=== PATIENT | male | born 1965 | race American Indian/Alaskan Native ===

== ENCOUNTER 2017-07-09 00:11 | Emergency (ER) | payer SELFPAY ==
[2017-07-09 03:39] LABS: Basophils # (Auto) 0.1 K/mm3 (0.0-0.1); Basophils % (Auto) 0.8 % (0.0-1.8); Eosinophils # (Auto) 0.2 K/mm3 (0.0-0.4); Eosinophils % (Auto) 1.5 % (0.0-4.3); Hematocrit 46.1 % (35.5-45.6); Hemoglobin 15.1 gm/dl (11.8-15.2); Lymphocytes # (Auto) 2.9 K/mm3 (1.2-5.4); Lymphocytes % (Auto) 23.5 % (13.4-35.0); Mean Corpuscular HGB Conc 33 % (32-34); Mean Corpuscular Volume 76 fl (84-94); Monocytes # (Auto) 1.2 K/mm3 (0.0-0.8); Monocytes % (Auto) 9.5 % (0.0-7.3); Platelet Count 221 K/mm3 (140-440); Red Blood Count 6.03 M/mm3 (3.65-5.03); Red Cell Distribution Width 15.1 % (13.2-15.2)
[2017-07-09 03:41] LABS: Mean Corpuscular Hemoglobin 25 pg (28-32)
[2017-07-09 03:56] LABS: Alanine Aminotransferase 17 units/L (7-56); Albumin 3.9 g/dL (3.9-5); BUN/Creatinine Ratio 14; Blood Urea Nitrogen 20 mg/dL (9-20); Calcium 8.6 mg/dL (8.4-10.2); Hemolysis Index 33
[2017-07-09] MEDS ORDERED: ZOFRAN IV ONE (04:59)
[2017-07-09] MEDS ORDERED: NACL 0.9% 1000 ML 1,000 ML IV ONE (04:59)
[2017-07-09] MEDS ORDERED: BENTYL PO ONE (04:59)
--- NOTE | 2017-07-09 05:00 | Emergency Department Report ---
ED General Adult HPI - General Chief complaint: Abdominal Pain Stated complaint: POSS CVA Time Seen by Provider: 07/09/17 04:17 Source: patient, EMS (ems notes not available at time of chart dictation), RN notes reviewed Mode of arrival: Stretcher Limitations: No Limitations - History of Present Illness Initial comments: this is a 52-year-old male who was previously unknown to this provider. He has a past medical history of stroke with mild residual right-sided deficits. He is brought to the hospital by EMS for possible convulsive event. Patient reports that he's been drinking over the past few days, but did not fall or hit his head. Apparently the patient may have had a convulsive event within the past 24 hours, the family was concerned that the patient might be having a stroke and contacted 911. The patient denies headache and neck pain as well as chest pain. He describes abdominal cramping and profuse nausea and vomiting. He denies testicular pain, urinary symptoms. The abdominal pain is crampy and does not radiate anywhere. Patient does not think that he's passed out. The patient reports that he feels like he is at his baseline currently. The patient would like some pain medicine, and also some fluids and some nausea medicine. -: Sudden Location: abdomen Severity scale (0 -10): 8 Consistency: intermittent Improves with: none Worsens with: none Associated Symptoms: malaise, nausea/vomiting, seizure. denies: confusion, chest pain, cough, diaphoresis, fever/chills, headaches, loss of appetite, rash , shortness of breath, syncope, weakness - Related Data Previous Rx's Medication Instructions Recorded Last Taken Type Acetaminophen [Tylenol Arthritis] 650 mg PO Q6HR PRN #30 tablet.er 07/09/17 Unknown Rx Ondansetron [Zofran Odt] 4 mg PO Q8HR PRN #20 tab.rapdis 07/09/17 Unknown Rx Allergies Allergy/AdvReac Type Severity Reaction Status Date / Time No Known Allergies Allergy Verified 07/09/17 05:06 ED Review of Systems ROS: Stated complaint: POSS CVA Other details as noted in HPI Constitutional: denies: fever Eyes: denies: eye discharge, vision change ENT: denies: epistaxis Respiratory: denies: cough Cardiovascular: denies: chest pain Gastrointestinal: abdominal pain, nausea, vomiting Genitourinary: denies: dysuria Musculoskeletal: denies: back pain Skin: denies: lesions Neurological: denies: weakness, numbness, paresthesias, confusion ED Past Medical Hx - Past Medical History Previous Medical History?: Yes Hx Hypertension: Yes Hx CVA: Yes (right deficits) Hx GERD: Yes - Surgical History Past Surgical History?: Yes Additional Surgical History: knee surgery - Social History Smoking Status: Current Every Day Smoker Substance Use Type: None, Alcohol - Medications Home Medications: Home Medications Medication Instructions Recorded Confirmed Last Taken Type Acetaminophen [Tylenol Arthritis] 650 mg PO Q6HR PRN #30 tablet.er 07/09/17 Unknown Rx Ondansetron [Zofran Odt] 4 mg PO Q8HR PRN #20 tab.rapdis 07/09/17 Unknown Rx ED Physical Exam - General Limitations: No Limitations General appearance: alert, in no apparent distress - Head Head exam: Present: atraumatic, normocephalic - Eye Eye exam: Present: normal appearance, EOMI, other (visual acuity intact to finger counting, color perception, reading at a close distance). Absent: nystagmus - ENT ENT exam: Present: normal exam, normal orophraynx, mucous membranes moist - Neck Neck exam: Present: normal inspection, full ROM - Respiratory Respiratory exam: Present: normal lung sounds bilaterally. Absent: respiratory distress - Cardiovascular Cardiovascular Exam: Present: regular rate, normal rhythm, normal heart sounds. Absent: systolic murmur, diastolic murmur, rubs, gallop - GI/Abdominal GI/Abdominal exam: Present: soft, normal bowel sounds. Absent: distended, tenderness, guarding, rebound, rigid, pulsatile mass - Rectal Rectal exam: Present: deferred - Extremities Exam Extremities exam: Present: normal inspection, full ROM, normal capillary refill. Absent: pedal edema, joint swelling, calf tenderness - Back Exam Back exam: Present: normal inspection, full ROM. Absent: tenderness, CVA tenderness (R), paraspinal tenderness - Neurological Exam Neurological exam: Present: alert, oriented X3, CN II-XII intact, normal gait, motor sensory deficit (there is 4.5-5 strength right upper extremity, right lower extremity.), other (sensation intact to light touch in the upper and lower extremities. Walks with a steady gait.) - Psychiatric Psychiatric exam: Present: normal affect, normal mood - Skin Skin exam: Present: warm, dry, intact, normal color. Absent: rash ED Course Vital Signs 07/09/17 07/09/17 07/09/17 01:17 02:54 03:00 Temperature 98 F Pulse Rate 72 78 Respiratory 20 Rate Blood Pressure 122/92 Blood Pressure 127/62 133/86 [Left] O2 Sat by Pulse 95 93 Oximetry 07/09/17 07/09/17 03:02 04:00 Temperature 97.8 F Pulse Rate 78 Respiratory 18 Rate Blood Pressure 97/67 Blood Pressure 125/94 [Left] O2 Sat by Pulse 96 95 Oximetry - Reevaluation(s) Reevaluation #1: 07/09/17 05:41 Differential diagnosis, including but not limited to: Dehydration, orthostasis, alcohol abuse, nonspecific convulsive event, urinary tract infection, pneumonia , intra-abdominal infection Assessment and plan: 52-year-old male with history of stroke with residual right -sided deficits, history of resolved hypotension within the past 24 hours, recent alcohol consumption and nausea and vomiting. He is currently afebrile with reassuring vital signs, clinically sober, walks with a steady gait, does not have any abdominal tenderness, and reports feeling like he is at his baseline. Laboratory studies unremarkable, EKG unremarkable. No convulsions or seizures noted while in the ER. CT scan of the head is pending, x-ray of the chest is negative, CT scan of the abdomen and pelvis is negative. - Consultations Consultation #1: 07/09/17 05:42 Care will be transferred to the oncoming ER physician, Dr. Tye Mckeon, to follow-up on the patient's CT scan results. Assuming CT scan is negative, patient able to tolerate oral feeds, and has no additional convulsive events, I would consider the patient suitable for discharge with instructions to follow up with an outpatient neurologist. ED Medical Decision Making - Lab Data Result diagrams: 07/09/17 03:08 07/09/17 03:08 Vital Signs 07/09/17 07/09/17 07/09/17 01:17 02:54 03:00 Temperature 98 F Pulse Rate 72 78 Respiratory 20 Rate Blood Pressure 122/92 Blood Pressure 127/62 133/86 [Left] O2 Sat by Pulse 95 93 Oximetry 07/09/17 07/09/17 03:02 04:00 Temperature 97.8 F Pulse Rate 78 Respiratory 18 Rate Blood Pressure 97/67 Blood Pressure 125/94 [Left] O2 Sat by Pulse 96 95 Oximetry Lab Results 07/09/17 07/09/17 07/09/17 Range/Units 03:08 03:08 05:13 WBC 12.3 H (4.5-11.0) K/mm3 RBC 6.03 H (3.65-5.03) M/mm3 Hgb 15.1 (11.8-15.2) gm/dl Hct 46.1 H (35.5-45.6) % MCV 76 L (84-94) fl MCH 25 L (28-32) pg MCHC 33 (32-34) % RDW 15.1 (13.2-15.2) % Plt Count 221 (140-440) K/mm3 Lymph % (Auto) 23.5 (13.4-35.0) % White % (Auto) 9.5 H (0.0-7.3) % Eos % (Auto) 1.5 (0.0-4.3) % Baso % (Auto) 0.8 (0.0-1.8) % Lymph # 2.9 (1.2-5.4) K/mm3 White # 1.2 H (0.0-0.8) K/mm3 Eos # 0.2 (0.0-0.4) K/mm3 Baso # 0.1 (0.0-0.1) K/mm3 Seg Neutrophils % 64.7 (40.0-70.0) % Seg Neutrophils # 8.0 H (1.8-7.7) K/mm3 Sodium 136 L (137-145) mmol/L Potassium 3.7 (3.6-5.0) mmol/L Chloride 95.7 L (98-107) mmol/L Carbon Dioxide 26 (22-30) mmol/L Anion Gap 18 mmol/L BUN 20 (9-20) mg/dL Creatinine 1.4 (0.8-1.5) mg/dL Estimated GFR > 60 ml/min BUN/Creatinine Ratio 14 % Glucose 119 H (75-100) mg/dL Calcium 8.6 (8.4-10.2) mg/dL Total Bilirubin 0.70 (0.1-1.2) mg/dL AST 16 (5-40) units/L ALT 17 (7-56) units/L Alkaline Phosphatase 81 (35-129) units/L Total Protein 7.1 (6.3-8.2) g/dL Albumin 3.9 (3.9-5) g/dL Albumin/Globulin Ratio 1.2 % Urine Color Yellow (Yellow) Urine Turbidity Clear (Clear) Urine pH 5.0 (5.0-7.0) Ur Specific [place] 1.010 (1.003-1.030) Urine Protein <15 mg/dl (Negative) mg/dL Urine Glucose (UA) Neg (Negative) mg/dL Urine Ketones Neg (Negative) mg/dL Urine Blood Neg (Negative) Urine Nitrite Neg (Negative) Urine Bilirubin Neg (Negative) Urine Urobilinogen < 2.0 (<2.0) mg/dL Ur Leukocyte Esterase Neg (Negative) Urine WBC (Auto) 3.0 (0.0-6.0) /HPF Urine RBC (Auto) 2.0 (0.0-6.0) /HPF U Epithel Cells (Auto) < 1.0 (0-13.0) /HPF Hyaline Casts 1 /LPF Urine Mucus Few /HPF Urine Opiates Screen Urine Methadone Screen Ur Barbiturates Screen Ur Phencyclidine Scrn Ur Amphetamines Screen U Benzodiazepines Scrn Urine Cocaine Screen 07/09/17 Range/Units 05:13 WBC (4.5-11.0) K/mm3 RBC (3.65-5.03) M/mm3 Hgb (11.8-15.2) gm/dl Hct (35.5-45.6) % MCV (84-94) fl MCH (28-32) pg MCHC (32-34) % RDW (13.2-15.2) % Plt Count (140-440) K/mm3 Lymph % (Auto) (13.4-35.0) % White % (Auto) (0.0-7.3) % Eos % (Auto) (0.0-4.3) % Baso % (Auto) (0.0-1.8) % Lymph # (1.2-5.4) K/mm3 White # (0.0-0.8) K/mm3 Eos # (0.0-0.4) K/mm3 Baso # (0.0-0.1) K/mm3 Seg Neutrophils % (40.0-70.0) % Seg Neutrophils # (1.8-7.7) K/mm3 Sodium (137-145) mmol/L Potassium (3.6-5.0) mmol/L Chloride (98-107) mmol/L Carbon Dioxide (22-30) mmol/L Anion Gap mmol/L BUN (9-20) mg/dL Creatinine (0.8-1.5) mg/dL Estimated GFR ml/min BUN/Creatinine Ratio % Glucose (75-100) mg/dL Calcium (8.4-10.2) mg/dL Total Bilirubin (0.1-1.2) mg/dL AST (5-40) units/L ALT (7-56) units/L Alkaline Phosphatase (35-129) units/L Total Protein (6.3-8.2) g/dL Albumin (3.9-5) g/dL Albumin/Globulin Ratio % Urine Color (Yellow) Urine Turbidity (Clear) Urine pH (5.0-7.0) Ur Specific [place] (1.003-1.030) Urine Protein (Negative) mg/dL Urine Glucose (UA) (Negative) mg/dL Urine Ketones (Negative) mg/dL Urine Blood (Negative) Urine Nitrite (Negative) Urine Bilirubin (Negative) Urine Urobilinogen (<2.0) mg/dL Ur Leukocyte Esterase (Negative) Urine WBC (Auto) (0.0-6.0) /HPF Urine RBC (Auto) (0.0-6.0) /HPF U Epithel Cells (Auto) (0-13.0) /HPF Hyaline Casts /LPF Urine Mucus /HPF Urine Opiates Screen Presumptive negative Urine Methadone Screen Presumptive negative Ur Barbiturates Screen Presumptive negative Ur Phencyclidine Scrn Presumptive negative Ur Amphetamines Screen Presumptive negative U Benzodiazepines Scrn Presumptive negative Urine Cocaine Screen Presumptive negative - EKG Data -: EKG Interpreted by Me EKG shows normal: sinus rhythm Rate: normal - EKG Data When compared to previous EKG there are: previous EKG unavailable Interpretation: normal EKG 07/09/17 05:40 Normal sinus, 71 bpm, normal intervals, normal axis, not consistent with a STEMI - Radiology Data Radiology results: pending Critical care attestation.: If time is entered above; I have spent that time in minutes in the direct care of this critically ill patient, excluding procedure time. ED Disposition Clinical Impression: History of convulsions Condition: Stable Instructions: New-Onset Seizure in Adults (ED) Additional Instructions: Do not drive her car or operate motor vehicles for the next 6 months. Take the medications as needed/directed. Follow up with a primary care doctor or neurologist within the next 7-10 days. Return to the ER right away with sleep, worsened or different symptoms. Continue current outpatient medications. If patient is taking metformin, do not take for the next 48 hours. Referrals: BJORN GODINEZ MD [Primary Care Provider] - 3-5 Days THAIS NICE MD [Referring] - 3-5 Days RONAL SAAVEDRA MD [Staff Physician] - 3-5 Days MELISSA AGUIRRE MD [Staff Physician] - 3-5 Days
--- NOTE | 2017-07-09 05:25 | XRay Report ---
FINAL REPORT EXAM: XR CHEST ROUTINE 2V HISTORY: sz; pna TECHNIQUE: PA and lateral views of the chest were obtained. FINDINGS: The heart size and mediastinum appear normal. The lungs are clear. Pleural fluid is not seen. The bones and soft tissues appear well maintained. IMPRESSION: No active chest disease.
[2017-07-09 05:30] LABS: Bilirubin,Urine NEG (Negative); Blood,Urine NEG (Negative); Color,Urine Yellow (Yellow); Hyaline Casts,Urine 1 /LPF; Mucus,Urine FEW /HPF; Protein,Urine <15 mg/dL mg/dL (Negative); Urobilinogen,Urine < 2.0 mg/dL (<2.0)
[2017-07-09 05:38] LABS: Amphetamine Screen,Urine PRESUMPTIVE NEGATIVE; Benzodiazepines Screen,Urine PRESUMPTIVE NEGATIVE; Cocaine Screen,Urine PRESUMPTIVE NEGATIVE; Methadone Screen,Urine PRESUMPTIVE NEGATIVE; Opiate Screen,Urine PRESUMPTIVE NEGATIVE
[2017-07-09 05:54] LABS: Cannabinoid Screen,Urine PRESUMPTIVE POSITIVE
[2017-07-09 07:35] VITALS: BP 103/63
--- NOTE | 2017-07-09 07:51 | Cat Scan Report ---
CT HEAD WITHOUT CONTRAST: HISTORY: Seizure. TECHNIQUE: Sequential 2.5mm CT images. COMPARISON: none. FINDINGS: Cerebral Parenchyma: Two chronic infarcts are identified in the left basal ganglia. A 1.3 cm chronic infarct is identified in the left lateral thalamus. A 2.0 cm chronic infarct is identified in the anterior left basal ganglia. The remaining brain parenchyma demonstrates normal attenuation. Cerebellum: Within normal limits. Brainstem: Within normal limits. Ventricles: Normal. Sella: Normal. Extra-axial spaces: Normal. Basal Cisterns: Normal. Intracranial Hemorrhage: None. Midline Shift: None. Calvarium: Normal. Sinuses: Normal. Mastoid Air Cells: Normal. Visualized Orbits: Normal. IMPRESSION: Chronic focal infarcts in the left basal ganglia. No acute intracranial process is identified.
--- NOTE | 2017-07-09 07:53 | Cat Scan Report ---
CT ABDOMEN PELVIS WITH CONTRAST: HISTORY: Abdominal pain, nausea and vomiting. COMPARISON: none. TECHNIQUE: Helical CT in 1.25mm intervals following IV contrast. Sagittal and coronal reconstructions. FINDINGS: Lung bases: Mild hypoventilatory changes in the lower lobes. Normal heart size. Liver: Normal. Biliary system: Normal. Pancreas: Normal. Spleen: Normal. Kidneys/ureters/bladder: Normal. 1.5 cm cyst in the inferior right kidney is noted. Adrenal glands: Normal. Aorta: Normal. Intestines: Normal. Appendix: Normal. Pelvic viscera: Normal. Ascites: None. Adenopathy: None. Musculoskeletal: Normal. IMPRESSION: No acute abdominal process is identified.
--- NOTE | 2017-07-09 08:07 | Emergency Department Report ---
Blank Doc - Documentation Documentation: I was asked by the overnight physician, Dr Miranda, to follow the results of the CT scan of the head as well as the CT scan of the abdomen/pelvis. The CT images were just read by radiology and both were read as normal without any acute process seen. I went and gave the patient the results of the CT scans. The sign out from Dr. Miranda was that if these images are negative, then the patient can be safely discharged home and he has already prepared discharge instructions and prescriptions for this patient.
== END 2017-07-09 08:13 | disposition home or self-care (01) ==
LOC: ED 00:11
DX: R56.9 Unspecified convulsions (principal); I10 Essential (primary) hypertension; K21.9 Gastro-esophageal reflux disease without esophagitis; F17.200 Nicotine dependence, unspecified, uncomplicated; Z86.73 Personal history of transient ischemic attack (TIA), and cerebral infarction without residual deficits
CPT/HCPCS: 36415; 70450; 71046; 74177; 80053; 80307; 81001; 85025; 93005; 93010; 96361; 96374; 99285; J2405; J7030; Q9967

== ENCOUNTER 2017-12-30 16:57 | Emergency (ER) | payer MEDICAID ==
[2017-12-30 19:07] LABS: Basophils # (Auto) 0.1 K/mm3 (0.0-0.1); Basophils % (Auto) 0.7 % (0.0-1.8); Hematocrit 49.5 % (35.5-45.6); Hemoglobin 16.2 gm/dl (11.8-15.2); Lymphocytes % (Auto) 18.3 % (13.4-35.0); Mean Corpuscular HGB Conc 33 % (32-34); Mean Corpuscular Volume 78 fl (84-94); Monocytes # (Auto) 0.5 K/mm3 (0.0-0.8); Platelet Count 202 K/mm3 (140-440); Red Blood Count 6.33 M/mm3 (3.65-5.03); Red Cell Distribution Width 14.7 % (13.2-15.2)
[2017-12-30 19:08] LABS: Mean Corpuscular Hemoglobin 26 pg (28-32)
[2017-12-30 19:27] LABS: Alanine Aminotransferase 18 units/L (7-56); Albumin 5.3 g/dL (3.9-5); BUN/Creatinine Ratio 9; Blood Urea Nitrogen 12 mg/dL (9-20); Calcium 10.7 mg/dL (8.4-10.2); Hemolysis Index 32; Lipase 92 units/L (13-60)
[2017-12-30] MEDS ORDERED: ZOFRAN IV ONE (20:58)
[2017-12-30] MEDS ORDERED: MORPHINE IV ONE (20:58)
[2017-12-30] MEDS ORDERED: NACL 0.9% 1000 ML 1,000 ML IV ONE (20:58)
--- NOTE | 2017-12-30 21:00 | Emergency Department Report ---
HPI - General Chief Complaint: Abdominal Pain Time Seen by Provider: 12/30/17 20:43 - HPI HPI: 52-year-old [place] male presents to the emergency department via EMS from home with complaint of generalized abdominal pain that has been going on since this morning. Earlier today the patient also had some nausea with vomiting with some yellow emesis but that has improved. He denies any dysuria but says that his urine has a strong smell to it. No constipation, diarrhea, fever. Patient says he has a previous history of some alcohol use but nothing recently. He is a tobacco smoker but denies any illicit drug use. He did not take anything or receive anything for his symptoms prior to arrival. He does not have a primary care physician. Recent travel or sick contacts at home. He has a past history of previous CVA with right-sided deficits, GERD and hypertension. ED Past Medical Hx - Past Medical History Previous Medical History?: Yes Hx Hypertension: Yes Hx CVA: Yes (right deficits) Hx GERD: Yes - Surgical History Past Surgical History?: Yes Additional Surgical History: knee surgery - Social History Smoking Status: Current Every Day Smoker Substance Use Type: Marijuana - Medications Home Medications: Home Medications Medication Instructions Recorded Confirmed Last Taken Type Acetaminophen [Tylenol Arthritis] 650 mg PO Q6HR PRN #30 tablet.er 07/09/17 Unknown Rx Ondansetron [Zofran ODT TAB] 4 mg PO Q8HR PRN #10 tab.rapdis 12/30/17 Unknown Rx traMADol [Ultram 50 MG tab] 50 mg PO Q6HR PRN #10 tablet 12/30/17 Unknown Rx ED Review of Systems ROS: Stated complaint: ABD PAIN Other details as noted in HPI Comment: All other systems reviewed and negative Constitutional: denies: chills, fever Eyes: denies: eye pain, eye discharge, vision change ENT: denies: ear pain, throat pain Respiratory: denies: cough, shortness of breath, wheezing Cardiovascular: denies: chest pain, palpitations Gastrointestinal: abdominal pain, nausea, vomiting Genitourinary: denies: urgency, dysuria Musculoskeletal: denies: back pain, joint swelling, arthralgia Skin: denies: rash, lesions Neurological: denies: headache, weakness, paresthesias Physical Exam - Physical Exam Vital Signs: Vital Signs 12/30/17 18:35 Temperature 98.7 F Pulse Rate 116 H Respiratory 16 Rate Blood Pressure 130/106 O2 Sat by Pulse 100 Oximetry Physical Exam: GENERAL: The patient is well-developed well-nourished. HENT: Normocephalic. Atraumatic. Patient has moist mucous membranes. EYES: Extraocular motions are intact. Pupils equal reactive to light bilaterally. NECK: Supple. Trachea is midline. CHEST/LUNGS: Clear to auscultation. There is no respiratory distress noted. HEART/CARDIOVASCULAR: Regular. There is mild tachycardia. There is no murmur. ABDOMEN: Abdomen is soft. There is some generalized tenderness to palpation of the abdomen. No guarding. Patient has normal bowel sounds. There is no abdominal distention. SKIN: There is no rash. There is no edema. There is no diaphoresis. NEURO: The patient is awake, alert, and oriented. The patient is cooperative. The patient has no focal neurologic deficits. The patient has normal speech. MUSCULOSKELETAL: There is no tenderness or deformity. There is no limitation range of motion. There is no evidence of acute injury. ED Course Vital Signs 12/30/17 18:35 Temperature 98.7 F Pulse Rate 116 H Respiratory 16 Rate Blood Pressure 130/106 O2 Sat by Pulse 100 Oximetry ED Medical Decision Making - Lab Data Result diagrams: 12/30/17 18:48 12/30/17 18:48 - Radiology Data Radiology results: report reviewed PROCEDURE: CT ABDOMEN PELVIS W CON TECHNIQUE: Computerized axial tomography of the abdomen and pelvis was performed after the IV injection of iodinated nonionic contrast. HISTORY: Abd pain COMPARISON: No prior studies are available for comparison. FINDINGS: Visualized lower thorax: No significant abnormality. Liver: Normal size and attenuation. Spleen: Normal size and attenuation. Gallbladder and biliary system: Normal. Pancreas: Normal. Adrenals: Normal. Kidneys: Normal. GI tract: Normal. No dilated loops of large or small bowel. Appendix is not visualized. Lymph nodes and mesentery: Normal. Vasculature: Atherosclerotic calcifications.. Bladder: Normal. Reproductive organs: Normal. Peritoneum: No free fluid. Musculoskeletal structures: No significant abnormality. Mild degenerative change. Other: None. IMPRESSION: No acute intra-abdominal abnormality seen. Atherosclerosis of the aorta with Transcribed By: SAMANTHA Dictated By: HOUSTON CARVAJAL MD Electronically Authenticated By: HOUSTON CARVAJAL MD Signed Date/Time: 12/30/17 0040 - Medical Decision Making The patient presents with a one-day history of generalized abdominal pain and earlier today with some nausea and vomiting. He has some generalized tenderness to palpation but he does not have a toxic or rigid abdomen. Labs are mostly unremarkable except for a slight elevation in the lipase level. No leukocytosis. No urinary tract infection. A CT scan of the abdomen and pelvis was done with IV contrast that does not show any acute intra-abdominal or pelvic pathology or show any etiology of his symptoms. He was given IV fluid and a dose of pain medication and upon reevaluation he is feeling improved. He has been reevaluated multiple times over multiple hours and there has been no return of his nausea or vomiting and he has improved. The patient will be discharged home with a small amount of pain medication, Zofran ODT and a referral for both primary care and gastroenterology. He will return to the ER with any worsening of symptoms or any acute distress. - Differential Diagnosis colitis, pancreatitis, diverticulitis, gastritis Critical Care Time: No Critical care attestation.: If time is entered above; I have spent that time in minutes in the direct care of this critically ill patient, excluding procedure time. ED Disposition Clinical Impression: Abdominal pain Qualifiers: Abdominal location: generalized Qualified Code(s): R10.84 - Generalized abdominal pain Nausea & vomiting Qualifiers: Vomiting type: unspecified Vomiting Intractability: non-intractable Qualified Code(s): R11.2 - Nausea with vomiting, unspecified Disposition: DC-01 TO HOME OR SELFCARE Is pt being admited?: No Condition: Stable Instructions: Acute Nausea and Vomiting (ED), Abdominal Pain (ED) Additional Instructions: Please follow up with a primary care physician in the next few days. Return to the emergency Department with any worsening of your symptoms or any acute distress. I have given you a referral for a local reheat furnace operator, Dr. Velasquez , to follow up regarding her abdominal pains. You have been prescribed a medication that is sedating and therefore should not be taken prior to driving, working, and responsible for children and in no way should be mixed with alcohol of any quantity. Prescriptions: Ondansetron [Zofran ODT TAB] 4 mg PO Q8HR PRN #10 tab.rapdis PRN Reason: Nausea traMADol [Ultram 50 MG tab] 50 mg PO Q6HR PRN #10 tablet PRN Reason: Pain Referrals: ASTER VELASQUEZ MD [Staff Physician] - 2-3 Days AMAURY FLORES MD [Staff Physician] - 2-3 Days PRIMARY CARE, [Primary Care Provider] - 2-3 Days Time of Disposition: 22:32
[2017-12-30 21:19] LABS: Bilirubin,Urine NEG (Negative); Blood,Urine SM (Negative); Color,Urine Yellow (Yellow); Mucus,Urine FEW /HPF; Urobilinogen,Urine < 2.0 mg/dL (<2.0)
--- NOTE | 2017-12-30 22:18 | Cat Scan Report ---
FINAL REPORT PROCEDURE: CT ABDOMEN PELVIS W CON TECHNIQUE: Computerized axial tomography of the abdomen and pelvis was performed after the IV injection of iodinated nonionic contrast. HISTORY: Abd pain COMPARISON: No prior studies are available for comparison. FINDINGS: Visualized lower thorax: No significant abnormality. Liver: Normal size and attenuation. Spleen: Normal size and attenuation. Gallbladder and biliary system: Normal. Pancreas: Normal. Adrenals: Normal. Kidneys: Normal. GI tract: Normal. No dilated loops of large or small bowel. Appendix is not visualized. Lymph nodes and mesentery: Normal. Vasculature: Atherosclerotic calcifications.. Bladder: Normal. Reproductive organs: Normal. Peritoneum: No free fluid. Musculoskeletal structures: No significant abnormality. Mild degenerative change. Other: None. IMPRESSION: No acute intra-abdominal abnormality seen. Atherosclerosis of the aorta with
[2017-12-30 22:59] VITALS: BP 140/90
== END 2017-12-30 23:16 | disposition home or self-care (01) ==
LOC: ED 16:57
DX: R10.84 Generalized abdominal pain (principal); R11.2 Nausea with vomiting, unspecified; I10 Essential (primary) hypertension; K21.9 Gastro-esophageal reflux disease without esophagitis; F17.200 Nicotine dependence, unspecified, uncomplicated
CPT/HCPCS: 36415; 74177; 80053; 81001; 83690; 85025; 96361; 96374; 96375; 99284; J2270; J2405; J7030; Q9967